=== PATIENT | female | born 1935 | race Caucasian/White ===

== ENCOUNTER 2023-01-10 17:04 | Observation (INO) | payer MEDICARE ==
[2023-01-10 17:38] LABS: #Monocytes 0.8 10x3/uL (0.0-1.1); %Basophils 0.1 % (0.0-2.0); %Eosinophils 0.3 % (0.0-6.0); %Monocytes 9.9 % (0.0-10.0); %Neutrophils 76.3 % (40.0-75.0); Hemoglobin 11.4 g/dL (12.0-15.5); Mean Corpuscular HGB CONC 33.6 g/dL (32.0-36.0); Mean Corpuscular Hemoglobin 29.9 pg (27.0-33.0); Mean Platelet Volume 9.9 fl (7.4-10.4); Platelet Count 221 10x3/uL (150-450); RBC Distribution Width 13.4 % (11.5-14.5); Red Blood Cell (RBC) Count 3.81 10x6/uL (3.90-5.03); White Blood Cell (WBC) Count 7.8 10x3/uL (3.5-10.5)
[2023-01-10 17:53] LABS: ALT (SGPT) 13 U/L (8-55); AST (SGOT) 20 U/L (5-34); Albumin 3.9 g/dL (3.4-4.8); Alkaline Phosphatase 65 U/L (40-110); Anion Gap 12 mmol/L (10-20); BUN (Urea Nitrogen) 27 mg/dL (9.8-20.1); Bilirubin, Total 0.2 mg/dL (0.2-1.2); CK (CPK) 120 U/L (29-168); Calc. Creatinine Clearance 0 mL/min (70-130); Carbon Dioxide 29 mmol/L (23-31); Chloride 101 mmol/L (98-107); Estimated GFR 60; Globulin 2.9 g/dL (2.4-3.5); Glucose 101 mg/dL (83-110); Lipase 36 U/L (8-78); Protein, Total 6.8 g/dL (5.8-8.1); Sodium 139 mmol/L (136-145)
[2023-01-10] MEDS ORDERED: Ondansetron PF 4 MG/2 ML Vial ONE ×2 (18:04)
[2023-01-10] MEDS ORDERED: Nitroglycerin 2% Ointment 1 INCH/1 GM Packet ONE (18:04)
[2023-01-10 18:08] LABS: CKMB 3.9 ng/mL (0-6.6)
[2023-01-10] MEDS ORDERED: Senokot S 8.6-50 MG TAB PO PRN (19:25)
[2023-01-10] MEDS ORDERED: Guaifenesin DM 100-10/5 ML UDCUP PO PRN (19:25)
[2023-01-10] MEDS ORDERED: Calcium Carbonate 500 MG ChewTAB PO PRN (19:25)
[2023-01-10] MEDS ORDERED: Ondansetron PF 4 MG/2 ML Vial IVP PRN (19:25)
[2023-01-10] MEDS ORDERED: Acetaminophen 325 MG TAB PO PRN (19:25)
[2023-01-10] MEDS ORDERED: Potassium Chloride 20 MEQ TAB ONE ×2 (20:11→22:31)
[2023-01-10 21:41] LABS: CKMB 3.8 ng/mL (0-6.6)
[2023-01-10] MEDS ORDERED: Amlodipine 5 MG TAB ONE (21:47)
[2023-01-10] MEDS ORDERED: Amlodipine 5 MG TAB PO SCH (22:00)
[2023-01-10] MEDS ORDERED: Atorvastatin Calcium 10 MG TAB PO SCH (22:00)
[2023-01-10] MEDS ORDERED: Metoprolol Tartrate 50 MG TAB PO SCH (22:00)
[2023-01-10] MEDS ORDERED: Lactated Ringer's 500 ML IV SCH (22:00)
[2023-01-10] MEDS ORDERED: Potassium Chloride 20 MEQ TAB PO SCH (22:00)
[2023-01-10] MEDS ORDERED: ALPRAZolam 1 MG TAB PO SCH (22:00)
[2023-01-10] MEDS ORDERED: Metoprolol Tartrate 50 MG TAB ONE (22:56)
[2023-01-11 05:10] LABS: Potassium 4.6 mmol/L (3.5-5.1)
[2023-01-11 05:11] LABS: Anion Gap 12 mmol/L (10-20); BUN (Urea Nitrogen) 22 mg/dL (9.8-20.1); Calc. Creatinine Clearance 0 mL/min (70-130); Carbon Dioxide 28 mmol/L (23-31); Chloride 103 mmol/L (98-107); Estimated GFR 65; Glucose 97 mg/dL (83-110); Magnesium 1.8 mg/dL (1.6-2.6); Sodium 138 mmol/L (136-145)
[2023-01-11 05:44] LABS: CKMB 3.7 ng/mL (0-6.6)
[2023-01-11] MEDS: Escitalopram Oxalate 10 mg Tablet PO SCH (09:28)
[2023-01-11] MEDS: Aspirin 81 mg Enteric Coated Tablet PO SCH (09:28)
[2023-01-11] MEDS: Docusate 100 MG CAP PO SCH (09:28)
[2023-01-11] MEDS: Metoprolol Tartrate 50 MG TAB PO SCH ×2 (09:28→22:02)
[2023-01-11] MEDS: Amlodipine 5 MG TAB PO SCH ×2 (09:28→22:03)
[2023-01-11] MEDS ORDERED: ALPRAZolam 1 MG TAB PO SCH (21:00)
[2023-01-11] MEDS ORDERED: Atorvastatin Calcium 10 MG TAB PO SCH (21:00)
[2023-01-12] MEDS ORDERED: Carvedilol 6.25 MG TAB PO SCH (08:00)
[2023-01-12] MEDS ORDERED: FLU VACC QS2022-23(65YR UP)/PF 240 MCG/0.7 ML SYRINGE IM ONE (09:00)
[2023-01-12 09:25] LABS: #Eosinphils 0.3 10x3/uL (0.0-0.5); #Monocytes 0.7 10x3/uL (0.0-1.1); #Neutrophils 3.8 10x3/uL (1.5-8.4); %Basophils 0.7 % (0.0-2.0); %Eosinophils 5.6 % (0.0-6.0); %Lymphocytes 17.5 % (18.0-47.0); %Monocytes 11.4 % (0.0-10.0); %Neutrophils 64.5 % (40.0-75.0); Hemoglobin 12.8 g/dL (12.0-15.5); Mean Corpuscular HGB CONC 32.7 g/dL (32.0-36.0); Mean Corpuscular Hemoglobin 29.4 pg (27.0-33.0); Mean Corpuscular Volume 89.9 fl (81.6-98.3); Mean Platelet Volume 9.6 fl (7.4-10.4); Platelet Count 199 10x3/uL (150-450); RBC Distribution Width 13.8 % (11.5-14.5); Red Blood Cell (RBC) Count 4.35 10x6/uL (3.90-5.03); White Blood Cell (WBC) Count 5.9 10x3/uL (3.5-10.5)
[2023-01-12 09:35] LABS: Anion Gap 14 mmol/L (10-20); BUN (Urea Nitrogen) 14 mg/dL (9.8-20.1); Calc. Creatinine Clearance 0 mL/min (70-130); Carbon Dioxide 26 mmol/L (23-31); Chloride 101 mmol/L (98-107); Estimated GFR 67; Glucose 115 mg/dL (83-110); Potassium 3.4 mmol/L (3.5-5.1); Sodium 138 mmol/L (136-145)
[2023-01-12] MEDS: Aspirin 81 mg Enteric Coated Tablet PO SCH (09:57)
[2023-01-12] MEDS: Amlodipine 5 MG TAB PO SCH (09:58)
[2023-01-12] MEDS: Escitalopram Oxalate 10 mg Tablet PO SCH (09:58)
[2023-01-12] MEDS: Docusate 100 MG CAP PO SCH (09:59)
[2023-01-12 14:21] VITALS: BP 141/64; TEMP 98.2
== END 2023-01-12 12:45 | disposition home or self-care (01) ==
LOC: CSHERS 17:04 → INTOOBSV 20:49 → CSHERHOLD 20:49 → CSHTELE 01-11 07:39
PROVIDERS: ADMIT Student in an Organized Health Care Education/Training Program; ATTEND Family Medicine
DX: R07.89 Other chest pain (principal); I10 Essential (primary) hypertension; E78.5 Hyperlipidemia, unspecified; E03.9 Hypothyroidism, unspecified; E87.6 Hypokalemia; K21.9 Gastro-esophageal reflux disease without esophagitis; R06.02 Shortness of breath; N19 Unspecified kidney failure; R91.1 Solitary pulmonary nodule; R79.89 Other specified abnormal findings of blood chemistry; R42 Dizziness and giddiness; R77.8 Other specified abnormalities of plasma proteins; F41.9 Anxiety disorder, unspecified; F32.A Depression, unspecified; G89.29 Other chronic pain; Z79.899 Other long term (current) drug therapy; Z88.8 Allergy status to other drugs, medicaments and biological substances; Z88.5 Allergy status to narcotic agent; Z88.2 Allergy status to sulfonamides
CPT/HCPCS: 71045; 71275; 73630; 80048 ×2; 80053; 82550; 82553 ×2; 83690; 83735; 84484 ×3; 85025 ×2; 85379; 93005; 93306; 93971; 96372 ×2; 96374; 99285; G0378 ×3; 36415; J1650; J2405

== ENCOUNTER 2024-01-11 08:32 | Emergency (ER) | payer MEDICARE ==
[2024-01-11] MEDS ORDERED: Acetaminophen 500 MG TAB ONE (08:50)
[2024-01-11] MEDS ORDERED: Ondansetron ODT 4 MG TAB ONE (08:50)
== END 2024-01-11 13:43 | disposition home or self-care (01) ==
LOC: CSHERS 08:32
DX: U07.1 COVID-19 (principal); I10 Essential (primary) hypertension; E78.00 Pure hypercholesterolemia, unspecified; E03.9 Hypothyroidism, unspecified; F41.9 Anxiety disorder, unspecified; Z55.6 Problems related to health literacy
CPT/HCPCS: 99283; Q0162

== ENCOUNTER 2024-12-05 13:04 | Outpatient (CLI) | payer MEDICARE ==
[2024-12-05] MEDS ORDERED: Iopamidol-370 76% 500 ML MDV (1 ML CHARGE) ONE (13:30)
== END 2024-12-05 13:05 | disposition home or self-care (01) ==
LOC: CSHCT 13:04
PROVIDERS: ATTEND Physician Assistant Medical
DX: M25.559 Pain in unspecified hip (principal); I70.0 Atherosclerosis of aorta; I70.8 Atherosclerosis of other arteries; M25.462 Effusion, left knee; M25.461 Effusion, right knee; M85.9 Disorder of bone density and structure, unspecified; M47.816 Spondylosis without myelopathy or radiculopathy, lumbar region; Z98.890 Other specified postprocedural states; I77.1 Stricture of artery
CPT/HCPCS: 75635; 82565; Q9967